=== PATIENT | male | born 1965 | race Caucasian/White ===

== ENCOUNTER 2025-05-02 10:46 | Outpatient (AMB) | payer BC, SELFPAY ==
--- NOTE | 2025-05-02 10:52 | MHC.PC.OV ---
Vital Signs 05/02/25 10:53 Height 6 ft 0.05 in Weight 180 lb 4 oz BMI 24.4 BP 130/76 Blood Pressure Location Lt brachial Position Sitting Pulse 93 Pulse Source Pulse Oximeter Temp 97.3 F Temp Source Temporal Artery Scan Pulse Oximetry (%) 96 Oxygen Delivery Method Room Air Intake Visit Reasons: Establish Care Intake Note: Patient is a new patient here to establish care for Difficulty breath, Ear issues, Knee pain. Transferring care from [facility] . Medical records have been requested and have not received. 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 Required: No Dietary Director: Not Required per policy Accompanied by: Self / Same As Patient Allergies No Known Allergies Allergy (Verified 05/02/25 11:09) Medication List - Last Reconciled 05/02/25 by Henry Gallegos PA-C montelukast 10 mg PO QPM Tobacco use date assessed: 05/02/25 Dental Screening Dental Screen Date: 05/02/25 Did you have a dental visit in the last 12 months?: No Did you have a dental problem in the last 6 months where you did not have access to dental care?: No Was dental information given to patient?: No HPI Establish Care HPI Details Patient is a 59-year-old male here today for new patient visit. Patient has a history of ear pain and sinusitis. Was followed by an ENT Dr. Brewer in the past. Previous PCP was Dr. So No records to review today. Dysphagia: The patient reports a history of swallowing difficulties, which began several months ago, characterized by food getting stuck at the back of his throat and persistent coughing. He consulted with an ENT specialist, Dr. Gonzáles, and although a barium swallow test was scheduled, it was not completed due to feeling unwell on the day of the test. Since the consultation, the patient's swallowing has improved significantly, and he no longer experiences the previous symptoms. .. Nocturia: The patient reports nocturia, having to wake up several times at night to urinate, a condition he has experienced for approximately 10 years. He also notes a weaker urinary stream during the day, suggesting a possible enlarged prostate. vaccine : Willing to get up-to-date with the pneumonia vaccine, considering yearly flu vaccine and shingles. 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 1. Little interest or pleasure in doing things: not at all 2. Feeling down, depressed, or hopeless: not at all 3. Trouble falling or staying asleep, or sleeping too much: not at all 4. Feeling tired or having little energy: not at all 5. Poor appetite or overeating: not at all 6. Feeling bad about yourself - or that you are a failure or have let yourself or your family down: not at all 7. Trouble concentrating on things, such as reading the newspaper or watching television: not at all 8. Moving or speaking so slowly that other people could have noticed. Or the opposite - being so fidgety or restless that you have been moving around a lot more than usual: not at all 9. Thoughts that you would be better off or of hurting yourself in some way: not at all Total score: 0 Depression Screening Interpretation: Negative Depression Screening Done: Yes 29099 - PHQ-9 Billing: Yes Source: Developed by Drs. Bharat Simpson, Camryn Mendez, Dev El and colleagues, with an educational fidelina from [employer]. Thrive Questionnaire Date Thrive assessed: 05/02/25 I am a: Patient What is your living situation today?: I have a steady place to live Within the past 12 months, did the food you bought not last and you didn't have the money to get more?: Never true Within the past 12 months, did you worry whether your food would run out before you got money to buy more?: Never true Do you have trouble paying for medicines?: I choose not to answer this question Do you have trouble getting transportation to medical appointments?: No Do you have trouble paying your heating and electricity bill?: I choose not to answer this question Do you have trouble taking care of your child, family member or friend?: No Do you have trouble with day-to-day activities such as bathing, preparing meals, shopping, managing finances, etc.?: No Are you currently unemployed and looking for a job?: No Are you interested in more education?: I choose not to answer this question Please select the resources that you would like help with: None Currently or been in a relationship where the following occur: No concerns reported THRIVE Score: 0 AUDIT C Alcohol Use Questionnaire (AUDIT-C) 1. How often do you have a drink containing alcohol?: 2-3 times a week 2. How many drinks containing alcohol do you have on a typical day when you are drinking?: 3 or 4 3. How often do you have six or more drinks on one occasion?: Never Total Score: 4 ELIAN-7 AMB Questionnaire ELIAN-7 Date ELIAN - 7 assessed: 05/02/25 Feeling nervous, anxious, or on edge: 0 = Not at all Not being able to stop or control worryin = Not at all Worrying too much about different things: 1 = Several days Trouble relaxin = Several days Being so restless that it is hard to sit still: 1 = Several days Becoming easily annoyed or irritable: 1 = Several days Feeling afraid as if something awful might happen: 0 = Not at all Total ELIAN-7 score (0-4 normal; 5-9 mild; 10-14 moderate; 15-21 severe): 4 Source: Developed by Drs. Bharat Simpson, Camryn Mendez, Dev El and colleagues, with an educational fidelina from [employer]. ELIAN-7 Assessment Billing ELIAN-7 Assessment Tool: ELIAN-7 Assessment 59898 Review of Systems Const Denies headache(s) Eyes Denies loss of vision ENT Denies vertigo, Denies dizziness, Denies headache(s) and Denies sore throat Card Denies chest pain, Denies leg edema and Denies lightheadedness Resp Denies cough, Denies hemoptysis and Denies wheezing GI Denies abdominal pain, Denies melena, Denies constipation, Denies diarrhea and Denies vomiting Denies dysuria, Denies urinary frequency and Denies urinary urgency Musc Denies arthralgias, Denies joint swelling, Denies numbness and Denies tingling Neuro Denies Abnormal speech present, Denies behavioral changes, Denies vertigo, Denies dizziness, Denies headache(s), Denies loss of vision, Denies memory loss, Denies numbness and Denies tingling Psych Denies anxiety, Denies behavioral changes, Denies depression, Denies memory loss and Denies panic attacks Kulwinder/Lymph Denies easy bleeding and Denies easy bruising Aller/Immun Denies wheezing Physical exam (Primary Care) Vital Signs: Last Vital Signs Temp 97.3 F 05/02/25 10:53 Pulse 93 05/02/25 10:53 BP 130/76 05/02/25 10:53 Pulse Ox 96 05/02/25 10:53 Oxygen Delivery Method Room Air 05/02/25 10:53 BMI result Body Mass Index 24.4 Tobacco/Smoking Status: Tobacco use Status Tobacco use date assessed 05/02/25 05/02/25 11:05 Patient Tobacco Use Status Former Tobacco user 05/02/25 11:25 Tobacco use type Cigar 05/02/25 11:25 e-Cigarette/Vaping Use Never Used 05/02/25 11:25 PHQ-9: PHQ-9 Score PHQ-9: Total score 0 05/02/25 11:44 Depression Screening Interpretation: Negative Thrive Assessment: Date of Thrive Assessment Date Thrive assessed 05/02/25 05/02/25 11:05 Currently or been in a relationship where the following occur: No concerns reported Const General: healthy appearing, no acute distress, alert and awake Nutritional Appearance: well nourished Orientation/consciousness: oriented to person, oriented to place and oriented to time HENMT Ears: TM's normal bilaterally General nose exam: Normal nasal mucous membranes and turbinates present Eyes Conjunctivae: conjunctivae normal Sclerae: sclerae normal Pupils: Equal, round and reactive pupils present Neck Neck: Yes no lymphadenopathy and Yes no JVD Thyroid: Thyroid normal Carotids: no bruits Resp Effort & Inspection: normal respiratory effort and not tachypneic Auscultation: no crackles, no rales, no rhonchi and no wheezes Cardio Rate: regular rate Rhythm: regular rhythm Heart sounds: no murmurs and normal S1 and S2 GI Palpation (GI): Soft to palpation, nontender, no hepatomegaly and no splenomegaly Auscultation: normal bowel sounds Skin General skin exam: no rashes or lesions noted and dry skin Neuro General: oriented to person, oriented to place and oriented to time Cranial nerves: Yes Equal, round and reactive pupils present Speech: No Abnormal speech present Gait exam (Neuro): Normal gait present Motor exam (neuro): no tremor noted Extrem Right upper extremity: full ROM Left upper extremity: full ROM Right lower extremity: full ROM; no edema Left lower extremity: full ROM; no edema Psych Mental Status: mental status grossly normal Speech and movement: Normal speech and movement present Affect: normal affect Attitude: cooperative Thought process: Normal thought process present Immunizations pneumoc 20-aurelio conj-dip cr(PF) 0.5 mL IM syringe Performing Provider: Henry Gallegos PA-C [facility] Administered by: Chanell Rosas RN on 05/02/25 11:42 Dose Route Admin Location Dispensed Lot Number Expiration Date NDC Inspector Machined Parts 0.5 mL IM Right Deltoid 0.5 mL [id number] 04/27/26 0025-0857-73 [employer] Total Dispensed Waste 0.5 mL 0 % VIS Given Date VIS Provided VIS Publication Date 05/02/25 Single Vaccine 25 Eligibility Eligibility Date Funding Source Not [facility] Eligible 05/02/25 Private Coding Level of Care Code New Pt Level 4 (51979) Diagnoses Oropharyngeal dysphagia R13.12 Dysphagia type: oropharyngeal phase Colon cancer screening Z12.11 Subacute frontal sinusitis J01.10 Sinusitis location: frontal Chronicity: subacute Nocturia R35.1 Anxiety F41.9 Additional Codes ELIAN-7 Assessment Billing - ELIAN-7 Assessment Tool: ELIAN-7 Assessment 57725 ([id number]) PHQ-9 - 95950 - PHQ-9 Billing: Yes ([id number]) Assessment & Plan Assessment & Plan (1) Dysphagia: Code(s): R13.10 - Dysphagia, unspecified Category: Medical Qualifiers: Dysphagia type: oropharyngeal phase Qualified Code(s): R13.12 - Dysphagia, oropharyngeal phase Plan: The patient reported previous swallowing difficulties, which have since improved significantly without further intervention. (2) Colon cancer screening: Code(s): Z12.11 - Encounter for screening for malignant neoplasm of colon Category: Medical Plan: Willing to get colonoscopy (3) Sinusitis: Code(s): J32.9 - Chronic sinusitis, unspecified Category: Medical Qualifiers: Sinusitis location: frontal Chronicity: subacute Qualified Code(s): J01.10 - Acute frontal sinusitis, unspecified Plan: The patient experienced ear pain and blockage, which resolved with the use of prescribed ear drops. Patient will bring in names of ear drops he has been using the consistently work for him. (4) Nocturia: Code(s): R35.1 - Nocturia Category: Medical Plan: Will check patient's PSA. Nocturia likely related to BPH. (5) Anxiety: Code(s): F41.9 - Anxiety disorder, unspecified Category: Medical Plan: Patient's ELIAN-7 score positive for anxiety. He does report stressful work and taking care of his elderly parents. Otherwise not interested in any medication or therapy Orders: Orders Complete Blood Count no Diff 05/02/25 Z13.1 - Encounter for screening for diabetes mellitus Comprehensive [place]. Panel Fast 05/02/25 Z13.1 - Encounter for screening for diabetes mellitus Prostate Specific Antigen Scr 05/02/25 Z12.5 - Encounter for screening for malignant neoplasm of prostate Pneumococcal 20 Immunization 05/02/25 Z23 - Encounter for immunization Referrals Gastroenterology Referral Z12.11 - Encounter for screening for malignant neoplasm of colon Medications: New montelukast 10 mg PO QPM 90 tabs 1RF 90 days J32.9 - Chronic sinusitis, unspecified
[2025-05-02 10:53] VITALS: BP 130/76; PULSE 93; TEMP 36.3; O2SAT 96; BMI 24.4
--- OUTSIDE RECORDS SUMMARY | 2025-05-02 11:41 | XMS_ITS | Clinical Summary ---
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 Active guaiFENesin (EXPECTORANT COUGH SYRUP) 100 mg/5 mL syrupIndication s:cough Take 200 mg by mouth 3 (three) times a day as needed for cough. Indications: cough Active Immunizations Immunization Administration Dates Next Due Hepatitis B Adult 11/17/2003,06/17/2003,05/18/20 03 Influenza Quadrivalent MDCK Preservative Free IM 08/10/2018,07/23/2017,08/14/2016 MMR 08/01/2003 Tdap 12/13/2011 Family History Medical History Relation Comments CV disease Father 2 Relation Status Comments Father 1 Alive Father 2 Social History Tobacco Use Types Packs/Day Years Used Date Smoking Tobacco: Never Smokeless Tobacco: Never Education Answer Date Recorded Are you interested in more education? Not on luis e 01/24/2023 Are you concerned about learning? Not on file 01/24/2023 No 01/24/2023 No 01/24/2023 Digital Access Answer Date Recorded No 02/24/2023 No 02/24/2023 Reliable internet access at home? Not on file 02/24/2023 Device with a working camera? Not on file Sex and Gender Information Value Date Recorded Sex Assigned at Not on file Legal Sex Male 9:41 PM EDT Gender Identity Not on file Sexual Orientation Not on file Last Filed Vital Signs Vital Sign Reading Time Taken Comments Blood Pressure 140/96 04/26/2019 11:05 AM EDT Pulse 90 04/26/2019 11:05 AM EDT Temperature 36.4 C (97.6 F) 04/26/2019 11:05 AM EDT Respiratory Rate - - Oxygen Saturation 98% 04/26/2019 11:05 AM EDT Inhaled Oxygen Concentration - - Weight 80.3 kg (177 lb) 04/26/2019 11:05 AM EDT Height 184.2 cm (6' 0.52 ) 04/26/2019 11:05 AM E DT Body Mass Index 23.66 04/26/2019 11:05 AM EDT Plan of Treatment Health Maintenance Due Date Last Done Comments DEPRESSION SCREENING 1977 HEPATITIS C SCREENING 1983 HIV ONE-TIME SCREENING (18-6 5 YEARS) 1983 COLOGUARD 2010 FIT TEST 2010 FOBT 2010 SIGMOIDOSCOPY 2010 VIRTUAL COLONOSCOPY 2010 PNEUMOCOCCAL VACCINES (50+ y ears) (1 of 1 - PCV) 2015 ZOSTER VACCINES (1 of 2) 2015 COLONOSCOPY 11/09/2020 11/09/2010 COLORECTAL CANCER SCREENING 11/09/2020 LIPID PANEL 10/15/2021 10/15/2016 Adult Td,Tdap Booster 12/12/2021 12/13/2011 COVID-19 VACCINE (2 - 2023-2 5 season) 2024 12/18/2020 SMOKING STATUS SCREENING (On ce After 26 Yrs) Completed 04/26/2019 HEPATITIS A VACCINES Aged Out No long er eligible based on patient's age to complete this topic HIB VACCINES Aged Out No longer eligi ble based on patient's age to complete this topic MENINGOCOCCAL VACCINES (ACWY) Aged Out No longer eligible based on patient's age to complete this topic MENINGOCOCCAL VACCINES (B) Aged Out N o longer eligible based on patient's age to complete this topic Medical Devices Not on file Procedures Procedure Name Priority Date/Time Associated Diagnosis Comments OUTSIDE LDL Routine 10/15/2016 from Last 3 Months or Most Recently Relevant to Health Maintenance Results * Outside LDL (10/15/2016) LDL - External 89 50 - 250 mg/ml us Historical Provider LAB BLOOD ORDERABLES Maddy l Result from Last 3 Months or Most Recently Relevant to Health Maintenance Insurance [facility] [place] [address] [address] [place] [address] [facility] [place] [facility] [facility] [place] [facility] [address] [place], [place] [address] Member Subscriber Plan / Payer (Ef fective 2019-Present) Name:Nael Ruiz Relation to Subscriber:Self Name:Nael Ruiz Payer ID:Not on file Type:O Address: [place] [id number] Care Teams Heel Top Lift Splitter Relationship Specialty Start Date End Date Pcp, Unknown PCP - General 05/21/22 Additional Source Comments The information contained in this document represents components of the legal health record. It is not the complete legal health record.[facility]
== END 2025-05-02 11:42 | disposition home or self-care (01) ==
LOC: HO.HMCH 10:46
PROVIDERS: Visit Provider Physician Assistant
DX: R13.12 Dysphagia, oropharyngeal phase (principal); Z12.11 Encounter for screening for malignant neoplasm of colon; J01.10 Acute frontal sinusitis, unspecified; R35.1 Nocturia; F41.9 Anxiety disorder, unspecified

== ENCOUNTER → 2025-05-02 10:46 | Outpatient (BNVA) | payer BC, SELFPAY | PROVIDERS: Visit Provider Physician Assistant | DX: R13.12 Dysphagia, oropharyngeal phase (principal); Z23 Encounter for immunization; J01.10 Acute frontal sinusitis, unspecified; R35.1 Nocturia; F41.9 Anxiety disorder, unspecified; Z13.31 Encounter for screening for depression; Z13.39 Encounter for screening examination for other mental health and behavioral disorders | CPT/HCPCS: 90471; 90677; 96127 ==

== ENCOUNTER 2025-09-14 08:05 | Outpatient (AMB) | payer BC, SELFPAY ==
--- NOTE | 2025-09-14 08:08 | MHC.OFFVIS ---
Vital Signs 09/14/25 08:14 Height 6 ft Weight 184 lb BMI 25.0 BP 134/62 Blood Pressure Location Rt brachial Position Sitting Pulse 84 Pulse Source Pulse Oximeter Pulse Oximetry (%) 98 Oxygen Delivery Method Room Air Intake Visit Reasons: Screening Intake Note: Patient new consult for pre Colonoscopy screening. Patient cc: Pt denies any current GI sx. Reports last colo was ~ 15 years ago via [facility]. No remarkable findings per pt. [employer] Required: No Accompanied by: Self / Same As Patient Allergies No Known Allergies Allergy (Verified 05/02/25 11:09) Medication List - Last Reconciled 09/14/25 by Gladys Colunga CNP montelukast 10 mg PO QPM 90 days [id number] 3.5-10,000-1 mg/mL-unit/mL-% 4 drps otic (ears) QID HPI HPI Screening: Details: Patient is a 60-year-old male with PMH of anxiety. Referred by PCP for pre colonoscopy screening. This will be his second colonoscopy; his first was approximately 15 years ago and was reportedly normal with no polyps found. Regarding his bowel habits, he reports having daily movements that are hard and separate (Antelope stool type 1). He also experiences episodes of watery diarrhea (Antelope stool type 7), which occur on a bimonthly basis for the last six months, sometimes with up to five movements a day. He denies experiencing abdominal pain or seeing blood in his stool. The patient also reports occasional dizziness, occurring about monthly, which can happen upon waking or during the day and can last from five minutes to half an hour. These episodes are sometimes associated with nausea but have not been evaluated by his primary care provider. He has vomited once or twice in the past year, which he described as watery. He has a past history of dysphagia which has improved, and he was previously established with an ENT specialist for this, though a recommended barium swallow was not completed. He denies heartburn and reports a good appetite with a stable weight. Patient denies: fever/chills, appetite changes, pyrosis, regurgitation, unintentional wt loss, ab pain or melena/hematochezia. Social hx: -ETOH use Reports drinking one or two beers during the week and three or four on the weekend. -denies recreational drug use -former cigar smoker, cessation 6 months ago - family hx as below -denies personal hx of CA -denies significant cardiopulmonary history -tolerated anesthesia in the past without difficulty. 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 ) Nutritional Appearance: average body habitus Orientation/consciousness: patient oriented x3 HEENT Head: Yes normal to inspection, Yes normocephalic and Yes atraumatic Face and sinus: Yes normal facial exam Eyes General: appearance normal, both eyes and all related structures Neck Neck: Yes normal visual inspection Resp Effort & Inspection: normal respiratory effort, able to speak in complete sentences, no tracheal deviation and symmetric chest movement Cardio Jugular venous distension: no JVD GI Inspection: Yes normal to inspection and No distended Palpation (GI): Soft to palpation, not firm, nontender and No hepatosplenomegaly present Auscultation: normal bowel sounds Neuro General: patient oriented x3 Gait exam (Neuro): Normal gait present Psych Appearance: grossly normal Mental Status: mental status grossly normal Speech and movement: Normal speech and movement present Affect: normal affect Attitude: cooperative Thought process: Normal thought process present Thought content: Normal thought content present Insight: Good insight present (Psych) Judgement: Good judgement present (Psych) Assessment & Plan Assessment & Plan (1) Colon cancer screening: Code(s): Z12.11 - Encounter for screening for malignant neoplasm of colon Category: Medical Plan: Due for age-appropriate screening. An order will be placed for a screening colonoscopy. - The patient will be contacted by the scheduling team to arrange a procedure date, likely in the new year. - Prescribed a Miralax split prep, which consists of a full bottle of Miralax, 64 ounces of Gatorade (avoiding red, blue, or purple colors), and four laxative tablets. We will issue extended prep to include 2 Bisacodyl tablets 5 days before procedure, given reports of constipation. - Instructions were provided regarding the prep, including starting a clear liquid diet the day before, arranging transportation, and being NPO for 4 hours prior to the procedure. (2) Constipation: Code(s): K59.00 - Constipation, unspecified Category: Medical Qualifiers: Constipation type: unspecified constipation type Qualified Code(s): K59.00 - Constipation, unspecified Plan: The patient's symptoms are consistent with severe constipation (Antelope type 1) with overflow diarrhea. - The initial plan for diagnostic workup including stool and blood tests was canceled. - Recommended an increase in dietary fiber, including fruits, vegetables, legumes, nuts, and seeds. - Advised to ensure adequate water intake throughout the day. - Provided the patient with a handout on high-fiber foods. (3) Dizziness: Code(s): R42 - Dizziness and giddiness Category: Medical Plan: Recommended the patient have a conversation with his primary care provider for a workup of his dizziness. - suspect symptoms are ENT induced. However, cannot neurological are cardiac etiologies. Do not believe that this should delay his colonoscopy screening. - Reassured the patient that his vital signs are good, making orthostatic hypotension less likely. (4) Poor hygiene: Code(s): R46.0 - Very low level of personal hygiene Category: Social Hx Plan: During the physical exam, what initially appeared to be a rash on the abdomen was identified as thick layer of external debris. - Encouraged the patient to take a thorough shower with soap and water to maintain personal hygiene. Plan Follow-up after colonoscopy or sooner as needed Time: I spent a total of minutes on the date of encounter which includes: Preparing to see the patient (reviewed previous documentation, test results and medical history) Performing a medically appropriate exam and/or evaluation Ordering medications, tests, and procedures Documenting clinical information in the health record Orders: Referrals GI Procedure Notification R19.5 - Other fecal abnormalities, Z12.11 - Encounter for screening for malignant neoplasm of colon Medications: New bisacodyl take four tablets once day of colonoscopy prep 20 mg (4 x 5 mg) PO ONCE 4 tabs 0RF polyethylene glycol 3350 (Miralax) per colonoscopy prep instructions 238 grams PO ONCE 238 grams 0RF bisacodyl Take two tablets at bedtime, starting five nights before colonoscopy 10 mg (2 x 5 mg) PO BEDTIME 10 tabs 0RF Coding Level of Care Code New Pt New Pt Level 3 (23587) Patient Type New Diagnoses Colon cancer screening Z12.11 Constipation, unspecified constipation type K59.00 Constipation type: unspecified constipation type Dizziness R42 Poor hygiene R46.0
--- OUTSIDE RECORDS SUMMARY | 2025-09-14 08:13 | XMS_ITS | Clinical Summary ---
Author Organization [facility] Address [address] [place] [id number] Phone Care Team Providers Care Base Cloth Inspector Name Role Phone Pcp, Unknown Primary Care [...] HEPATITIS C SCREENING 1983 HIV ONE-TIME SCREENING (18-65 YEARS) 1983 COLOGUARD 2010 FIT TEST 2010 FOBT 2010 SIGMOIDOSCOPY 2010 VIRTUAL COLONOSCOPY 2010 PNEUMOCOCCAL VACCINES (50+ years) (1 of 1 - PCV) 2015 ZOSTER VACCINES (1 of 2) 2015 COLONOSCOPY 11/09/2020 11/09/2010 COLORECTAL CANCER SCREENING 11/09/2020 LIPID PANEL 10/15/2021 10/15/2016 Adult Td,Tdap Booster 12/12/2021 12/13/2011 INFLUENZA VACCINE (#1) 2025 , 06/30/2019, 08/10/2018, Additional history exists COVID-19 VACCINE (2 - 2024- season) 2025 12/18/2020 RSV VACCINE (1 - 1-dose 75+ series) 2040 SMOKING STATUS SCREENING (Once After 26 Yrs) Completed 04/26/2019 HEPATITIS A [...] Most Recently Relevant to Health Maintenance Insurance O O O [facility] [place] [facility] [address] [place], [place] [id number] [facility] Care Teams Base Cloth Inspector Relationship Specialty Start Date End Date Pcp, Unknown PCP - General 05/21/22 Additional Source Comments The information contained in this document represents components of the legal health record. It is not the complete legal health record.[facility]
[2025-09-14 08:14] VITALS: BP 134/62; PULSE 84; O2SAT 98; BMI 25.0
== END 2025-09-14 09:01 | disposition home or self-care (01) ==
LOC: HO.HGI 08:06
PROVIDERS: PCP Physician Assistant; Visit Provider Nurse Practitioner Family
DX: Z01.818 Encounter for other preprocedural examination (principal); Z12.11 Encounter for screening for malignant neoplasm of colon; K59.00 Constipation, unspecified; R46.0 Very low level of personal hygiene; R42 Dizziness and giddiness
CPT/HCPCS: S0285

== ENCOUNTER 2025-09-16 06:41 | Outpatient (REF) | payer BC, SELFPAY ==
--- OUTSIDE RECORDS SUMMARY | 2025-09-16 06:45 | XMS_ITS | Clinical Summary ---
Author Organization [facility] Address [address] [place] [phone] Phone Care Team Providers Care Water Plant Operator Name Role Phone Pcp, Unknown Primary Care [...] to Health Maintenance Insurance O O O [facility] [place] [facility] [address] [place], [place] [address]O [facility] Care Teams Water Plant Operator Relationship Specialty Start Date End Date Pcp, Unknown PCP - General 05/21/22 Additional Source Comments The information contained in this document represents components of the legal health record. It is not the complete legal health record.[facility]
[2025-09-16 08:18] LABS: Hematocrit 45.2 % (42.0-52.0); Hemoglobin 15.5 g/dl (14.0-18.0); Mean Corpuscular HGB Conc 34.3 g/dl (31.0-36.0); Mean Corpuscular Hemoglobin 31.1 pg (27.0-33.0); Mean Corpuscular Volume 90.6 fL (80.0-98.0); NRBC Abs Auto 0.000 X10*3/uL (0.0-0.012); NRBC Pct Auto 0.0 /100WBC (0.0-0.2); Platelet Count 320 X10*3/uL (160-400); Red Blood Count 4.99 X10*6/uL (4.60-5.80); White Blood Count 8.1 X10*3/uL (4.8-10.8)
[2025-09-16 08:33] LABS: Alanine Aminotransferase 23 U/L (0-40); Albumin Level 4.8 g/dL (3.5-5.0); Alkaline Phosphatase 82 U/L (39-117); Anion Gap 12 (12-20); Aspartate Amino Transferase 22 U/L (5-37); Blood Urea Nitrogen 15 mg/dL (9-16); Calcium 9.8 mg/dL (8.4-10.2); Carbon Dioxide 27 mmol/L (22-29); Chloride 104 mmol/L (96-108); Estimated Glomerular Filt Rate > 60; Potassium 4.1 mmol/L (3.3-5.1); Sodium 139 mmol/L (135-145); Total Protein 7.2 g/dL (6.5-8.0)
== END 2025-09-16 06:42 | disposition home or self-care (01) ==
LOC: HO.LAB 06:41
PROVIDERS: PCP Physician Assistant; Visit Provider Physician Assistant
DX: Z12.5 Encounter for screening for malignant neoplasm of prostate (principal); Z13.1 Encounter for screening for diabetes mellitus; Z13.0 Encounter for screening for diseases of the blood and blood-forming organs and certain disorders involving the immune mechanism
CPT/HCPCS: 36415; 80053; 84153; 85027